=== PATIENT | female | born 1940 | race Caucasian/White ===

== ENCOUNTER 2017-09-13 10:18 | Emergency (ER) | payer MEDICARE, OTHER ==
[2017-09-13 10:51] VITALS: BP 126/64
--- NOTE | 2017-09-13 11:45 | UC ---
Lower Extremity/Ankle HPI - HPI Summary HPI Summary: 77 y/o w/ PMHX DM type II, HTN, gout, Dyslipidemia presents to the urgent care c /o B/L leg swelling and discomfort w/ redness and warm for the past week. Pt states pain is 3/10 at touch, dull and a burning sensation at times that comes and goes. She has noticed some redness and warmth since yesterday. Pt reports Hx of cellulitis in the past. Pt denies fever, calf pain, Hx of DVT, recent travel or surgery, SOB, palpitations, chest pain, abdominal pain, N/V/D. Pt also has states Hx B/L hip replacement for which she takes Oxycodone. She took 1 tab this morning at 0630am to alleviate symptoms. She has an schedule appt w/ her PCP in [place] next Saturday09/17/2017 at 1045am. - History of Current Complaint Chief Complaint: UCLowerExtremity Stated Complaint: BILATERAL LEG COMPLAINT Time Seen by Provider: 09/13/17 11:17 Hx Obtained From: Patient ?: No Onset/Duration: Gradual Onset, Lasting Weeks - 1 week, Still Present, Worse Since - yesterday Severity Initially: Mild Severity Currently: Moderate Pain Intensity: 3 Pain Scale Used: 0-10 Numeric Aggravating Factor(s): Standing, Ambulation Alleviating Factor(s): Rest, Elevation, OTC Meds Able to Bear Weight: Yes - Risk Factors Gout Risk Factors: Age Over 40, Diabetes, Hyperlipidemia, Obesity DVT Risk Factors: Negative - Allergies/Home Medications Allergies/Adverse Reactions: Allergies Allergy/AdvReac Type Severity Reaction Status Date / Time Penicillins Allergy Swelling Verified 09/13/17 10:47 Sulfa (Sulfonamide Allergy Rash Verified 09/13/17 10:47 Antibiotics) Home Medications: Home Medications Allopurinol TAB* [Zyloprim 100 MG TAB*] 100 mg PO DAILY 09/13/17 [History Confirmed 09/13/17] Cholecalciferol TAB* [Vitamin D TAB*] 1,000 unit PO DAILY 09/13/17 [History Confirmed 09/13/17] Furosemide TAB* [Lasix TAB*] 40 mg PO DAILY 09/13/17 [History Confirmed 09/13/17 ] Lisinopril TAB* [Prinivil TAB 5 MG*] 2.5 mg PO DAILY 09/13/17 [History Confirmed 09/13/17] PMH/Surg Hx/FS Hx/Imm Hx Previously Healthy: Yes Endocrine History: Diabetes, Hypothyroidism, Dyslipidemia Other Endocrine History: GOUT Cardiovascular History: Hypertension - Surgical History Surgical History: Yes Surgery Procedure, Year, and Place: bilateral hip replacements. uterine surgery. cataract - Family History Known Family History: Positive: Cardiac Disease, Hypertension, Diabetes - Social History Occupation: Retired Lives: With Family Alcohol Use: None Substance Use Type: None Smoking Status (MU): Never Smoked Tobacco - Immunization History Most Recent Influenza Vaccination: 2012, 2013 Review of Systems Skin: Rash - Rt leg redness and swelling Eyes: Negative, Diplopia ENT: Negative Respiratory: Negative Cardiovascular: Negative Gastrointestinal: Negative Genitourinary: Negative Motor: Negative Neurovascular: Negative Musculoskeletal: Edema - B/L, Other: - B/L leg pain Neurological: Negative Psychological: Negative Is Patient Immunocompromised?: No All Other Systems Reviewed And Are Negative: Yes Physical Exam - Summary Physical Exam Summary: Appearance: Well-Appearing, No Pain Distress, Well-Nourished, Obese Vital Signs Reviewed: Yes Eyes: Positive: Conjunctiva Clear - PERRLA< MAURO, fundi grossly WNL ENT: Positive: Normal ENT inspection, Hearing grossly normal, Pharynx normal, TMs normal, Uvula midline Neck: Positive: Supple, Nontender, No Lymphadenopathy Respiratory: Positive: Chest non-tender, Lungs clear, Normal breath sounds, No respiratory distress Cardiovascular: Positive: RRR, No Murmur, Pulses Normal, Brisk Capillary Refill Abdomen Description: Positive: Nontender, No Organomegaly, Soft. Negative: CVA Tenderness (R), CVA Tenderness (L) Bowel Sounds: Positive: Present Extremities: B/L extremity without deformity or asymmetry . B/L lower leg edema. RT lower leg with redness and an erythematous patch w/ indistict borders about 5.0cm x 4.0cm in size , warm to touch. No lesions or break in skin integrity. Diameter of calves 24cm both. Soft tissues of posterior lower legs are soft, supple, nontender and no palpable cords or evidence of thrombophlebitis. No evidence of gangrene or compartment syndrome. Medial thigh is without soft tissue swelling or tender to palpation. Negative Homans sign. No proximal lymphangitis or lymphadenopathy. Neurological Exam: Normal Psychological Exam: Normal Skin Exam: Normal Triage Information Reviewed: Yes Vital Signs: Initial Vital Signs Temp 98.6 F 09/13/17 10:38 Pulse 63 09/13/17 10:38 Resp 19 09/13/17 10:38 BP 126/64 09/13/17 10:38 Pulse Ox 97 09/13/17 10:38 Lower Extremity Course/Dx - Course Course Of Treatment: 77 y/o w/ PMHX DM type II, HTN, gout, Dyslipidemia presents to the urgent care c/o B/L leg swelling and discomfort w/ redness and warm for the past week. Pt states pain is 3/10 at touch, dull and a burning sensation at times that comes and goes. She has noticed some redness and warmth since yesterday. Pt reports Hx of cellulitis in the past. Pt denies fever, calf pain, Hx of DVT, recent travel or surgery, SOB, palpitations, chest pain, abdominal pain, N/V/D. Pt also has states Hx B/L hip replacement for which she takes Oxycodone. She took 1 tab this morning at 0630am to alleviate symptoms. She has an schedule appt w/ her PCP in [place] next Saturday at 1045am. Hx obtained. Pt w/ B/L lower leg pitting edema and Rt lower leg cellulitis on examination. Pt's symptoms discussed w/ Dr Jalloh. Dr Jalloh evaluated Pt and she thinks Pt has an irregular HR. EKG ordered: NSR, HR:65bpm , No ST elevations or depressions. Dr Jalloh recommended Pt should go to the ER for further monitoring and evaluation. I spoke to Pt and explained the need for further work up since Pt's PMHX of DM type II. PT declined to go to [place] ER. Pt states she has an appt w/ her PCP in [place] on next Saturday and that she is feeling fine that she only needs ABX Tx.I then suggested Pt to do some blood work at the clinic and then f/u w/ her PCP. Pt also declined Blood work since she knows her PCP will be doing BW. Dr Jalloh then, recommended ABx Tx and increase Lasix PO for few days to decrease PT's edema. Pt PCN and Sulfa allergic. Pt Rx Keflex PO for her cellulitis sice she hs taking it in the past. and PT strongly advised to go to the ER if the redness and edema in her RT leg doubles in size despite taking ABX. Pt understood and agreed w/ plan on care and left the clinic hemodynamically stable, A&OX3. - Differential Dx/Diagnosis Differential Diagnosis/HQI/PQRI: Cellulitis, DVT, Gout, Phlebitis, Other - edema , CHF, Provider Diagnoses: 1- RT leg cellulitis. 2- B/L leg edema Discharge - Sign-Out/Discharge Documenting (check all that apply): Discharge/Admit/Transfer - D/C home - Discharge Plan Condition: Stable Disposition: HOME Prescriptions: Cephalexin CAP* [Keflex CAP*] 500 mg PO QID #28 cap Patient Education Materials: Cellulitis (ED), Leg Edema (ED) Referrals: Hiren JOHNSON,Bj Dyson [Primary Care Provider] - 2 Days Additional Instructions: 1- You declined to go to the ER today for further management. However If redness and swelling doubles in size after 48 hrs of taking antibiotic and fever develops, SOB, or palpations please go the ER immediately for further treatment. Please increase Lasix 40mg PO BID until you see your PCP 2-Please take full course of Antibiotic. Please f/u w/ your PCP Dr Maradiaga on your appt on SaturdaySeptember 17 at 1045AM for further evaluation and treatment. 3- If redness and swelling doubles in size after 48 hrs of taking antibiotic and fever develops, SOB, palpations please go the ER immediately for further treatment. 4-Avoid standing for long periods of time keep your legs elevated. Decrease salt intake since this will make B/L edema worse . - Billing Disposition and Condition Condition: STABLE Disposition: HOME
== END 2017-09-13 12:46 | disposition home or self-care (01) ==
LOC: UCCORT 10:18
DX: L03.116 Cellulitis of left lower limb (principal); L03.115 Cellulitis of right lower limb; R60.0 Localized edema; I49.9 Cardiac arrhythmia, unspecified; E11.9 Type 2 diabetes mellitus without complications; Z79.84 Long term (current) use of oral hypoglycemic drugs; E03.9 Hypothyroidism, unspecified; E78.5 Hyperlipidemia, unspecified; M10.9 Gout, unspecified; I10 Essential (primary) hypertension; Z96.643 Presence of artificial hip joint, bilateral; Z88.0 Allergy status to penicillin; Z88.2 Allergy status to sulfonamides
CPT/HCPCS: 93005; 99202; G0463